=== PATIENT | female | born 1960 | race Native Hawaiian/Other Pacific Islander ===

== ENCOUNTER 2017-12-23 10:29 | Outpatient (CLI) | payer BC | END 2017-12-23 20:16 | disposition home or self-care (01) | LOC: MAMMO 10:29 | DX: Z12.31 Encounter for screening mammogram for malignant neoplasm of breast (principal) ==

== ENCOUNTER 2018-01-20 13:00 | Outpatient (CLI) | payer BC | END 2018-01-20 21:20 | disposition home or self-care (01) | LOC: MAMMO 13:00 | DX: R92.8 Other abnormal and inconclusive findings on diagnostic imaging of breast (principal) ==

== ENCOUNTER 2018-11-30 10:29 | Outpatient (CLI) | payer OTHER | END 2018-11-30 20:16 | disposition home or self-care (01) | LOC: US 10:29 | DX: R31.9 Hematuria, unspecified (principal) ==

== ENCOUNTER 2018-12-09 10:09 | Outpatient (CLI) | payer OTHER ==
[2018-12-09 11:03] LABS: PLATELET COUNT 306 K/uL (152-353)
[2018-12-09 11:45] LABS: POTASSIUM 4.3 mmol/L (3.6-5.2)
== END 2018-12-09 19:54 | disposition home or self-care (01) ==
LOC: LABW 10:09
PROVIDERS: Internal Medicine
DX: R31.21 Asymptomatic microscopic hematuria (principal)
CPT/HCPCS: 36415; 80053; 81000; 82043; 82330; 82570; 83516; 83735; 84100; 84155; 85027; 85651; 86038; 86225; 86255; 86430

== ENCOUNTER 2018-12-30 08:52 | Outpatient (CLI) | payer OTHER | END 2018-12-30 20:36 | disposition home or self-care (01) | LOC: MAMMO 08:52 | DX: Z12.31 Encounter for screening mammogram for malignant neoplasm of breast (principal); Z13.820 Encounter for screening for osteoporosis ==

== ENCOUNTER 2019-01-13 09:17 | Outpatient (CLI) | payer OTHER | END 2019-01-13 23:28 | disposition home or self-care (01) | LOC: CT 09:17 | DX: R31.21 Asymptomatic microscopic hematuria (principal) ==

== ENCOUNTER 2019-07-29 09:59 | Outpatient (CLI) | payer OTHER | END 2019-07-29 22:05 | disposition home or self-care (01) | LOC: LAB 09:59 | DX: N39.0 Urinary tract infection, site not specified (principal) | CPT/HCPCS: 81002; 87077; 87086; 87088; 87186 ==

== ENCOUNTER 2020-01-03 09:08 | Outpatient (CLI) | payer OTHER | END 2020-01-03 19:08 | disposition home or self-care (01) | LOC: MAMMO 09:08 | DX: Z12.31 Encounter for screening mammogram for malignant neoplasm of breast (principal) ==

== ENCOUNTER 2021-08-01 07:37 | Outpatient (CLI) | payer BC | END 2021-08-01 19:00 | disposition home or self-care (01) | LOC: CT 07:37 | PROVIDERS: ATTEND Internal Medicine | DX: R10.32 Left lower quadrant pain (principal); R10.2 Pelvic and perineal pain | CPT/HCPCS: 36415; 82565; 84520; Q9963 ==